=== PATIENT | female | born 1995 | race Caucasian/White ===

== ENCOUNTER 2020-07-13 18:32 | Inpatient (IN) | payer BC ==
[~2020-07-13] VITALS: Ht 167.6 cm; Wt 83.5 kg
[~2020-07-13 18:32] MED LIST: CIPRO500 MG PO; IBUPROFEN800 MG PO; MACROBID100 MG PO; PHENAZOPYRIDIN200 MG PO
[2020-07-13 19:06] LABS: BASOPHILS 0.1 % (0-2); EOSINOPHILS 0 % (0-7); HEMATOCRIT 41.3 % (36.0-48.0); HEMOGLOBIN 13.6 g/dL (12-16); IMMATURE GRANULOCYTES 0.3 % (0-5); LYMPHOCYTE ABS# 1.11 10x3/uL (1.18-3.74); LYMPHOCYTES 5.8 % (15-50); MCH 29.9 pg (26.0-34.0); MCHC 32.9 g/dL (31.0-37.0); MCV 90.8 fL (80.0-100.0); MEAN PLATELET VOLUME 11.2 fL (7.4-10.4); MONOCYTES 4.9 % (2-11); NEUTROPHIL ABS# 16.86 10x3/uL (1.56-6.13); NEUTROPHILS 88.9 % (40-80); RBC 4.55 10x6/uL (4.00-5.40); RDW 12.9 % (11.5-14.5)
[2020-07-13 19:10] LABS: PLATELET COUNT 341 10x3/uL (130-400)
[2020-07-13 19:11] LABS: BILIRUBIN NEGATIVE (NEGATIVE); KETONE NEGATIVE (NEGATIVE); NITRITE POSITIVE (NEGATIVE); UROBILINOGEN NORMAL mg/dL (< 2)
[2020-07-13 19:12] LABS: BACTERIA MANY HPF (NONE SEEN); SQUAMOUS EPITHELIAL 0-5 HPF (0-4); WHITE CELLS - URINE 50 HPF (0-4)
[2020-07-13 19:12] LABS: CALC OSMOLALITY 278 mosm/kg (275-300); CARBON DIOXIDE 26.1 mmol/L (21.0-32.0); CHLORIDE - SERUM 101 mmol/L (98-107); CREATININE - SERUM 1.1 mg/dL (0.6-1.3); GLUCOSE 132 mg/dL (74-106); POTASSIUM - SERUM 3.7 mmol/L (3.5-5.1); SODIUM 138 mmol/L (136-145); UREA NITROGEN 14 mg/dL (7-18); eGFR NON AFRICAN AMERICAN 66 mL/min (90-120)
[2020-07-13 19:21] LABS: ALBUMIN 4.5 g/dL (3.4-5.0); ALKALINE PHOSPHATASE 86 U/L (30-120); ALT (SGPT) 17 U/L (10-68); AMYLASE - SERUM 73 U/L (25-115); BILIRUBIN - TOTAL 1.02 mg/dL (0.2-1.3); LIPASE 65 U/L (73-393); PROTEIN - SERUM 9.3 g/dL (6.4-8.2)
[2020-07-13 19:22] LABS: TROPONIN-I < 0.017 ng/mL (0.000-0.060)
[2020-07-13 19:42] LABS: HCG URINE NEGATIVE (NEGATIVE)
[2020-07-13 20:00] VITALS: BP 140/83
[2020-07-13 20:55] VITALS: BP 138/79
[2020-07-13 21:03] LABS: APTT 27.6 SECONDS (22.8-39.4); INR 1.12 (0.85-1.17); PROTIME 13.3 SECONDS (11.6-15.0)
[2020-07-13 22:26] LABS: UDS - AMPHET NEGATIVE QUAL (NEGATIVE); UDS - BARB NEGATIVE QUAL (NEGATIVE); UDS - BENZO POSITIVE QUAL (NEGATIVE); UDS - COCAINE NEGATIVE QUAL (NEGATIVE); UDS - OPIATE NEGATIVE QUAL (NEGATIVE); UDS - PCP NEGATIVE QUAL (NEGATIVE); UDS - THC POSITIVE QUAL (NEGATIVE)
[2020-07-14] VITALS: BP 128/82
[2020-07-14 02:21] VITALS: BP 140/83; BMI 29.7
[2020-07-14 04:00] VITALS: BP 105/62
[2020-07-14 05:29] LABS: BASOPHILS 0.1 % (0-2); EOSINOPHILS 0 % (0-7); HEMATOCRIT 34.8 % (36.0-48.0); HEMOGLOBIN 11.5 g/dL (12-16); IMMATURE GRANULOCYTES 0.2 % (0-5); LYMPHOCYTE ABS# 1.22 10x3/uL (1.18-3.74); LYMPHOCYTES 8.1 % (15-50); MCH 29.9 pg (26.0-34.0); MCV 90.6 fL (80.0-100.0); MEAN PLATELET VOLUME 11.3 fL (7.4-10.4); NEUTROPHIL ABS# 12.97 10x3/uL (1.56-6.13); NEUTROPHILS 85.6 % (40-80); RBC 3.84 10x6/uL (4.00-5.40); RDW 12.8 % (11.5-14.5); WBC 15.1 10x3/uL (4.8-10.8)
[2020-07-14 05:33] LABS: PLATELET COUNT 265 10x3/uL (130-400)
[2020-07-14 05:44] LABS: ALKALINE PHOSPHATASE 72 U/L (30-120); ALT (SGPT) 15 U/L (10-68); BILIRUBIN - TOTAL 0.77 mg/dL (0.2-1.3); CALCIUM 8.4 mg/dL (8.5-10.1); CARBON DIOXIDE 27.5 mmol/L (21.0-32.0); CHLORIDE - SERUM 101 mmol/L (98-107); CREATININE - SERUM 0.9 mg/dL (0.6-1.3); GLUCOSE 106 mg/dL (74-106); MAGNESIUM - SERUM 1.9 mg/dL (1.8-2.4); POTASSIUM - SERUM 3.6 mmol/L (3.5-5.1); PROTEIN - SERUM 7.5 g/dL (6.4-8.2); SODIUM 137 mmol/L (136-145); eGFR NON AFRICAN AMERICAN 83 mL/min (90-120)
[2020-07-14 05:49] LABS: ALBUMIN 3.3 g/dL (3.4-5.0); CALC OSMOLALITY 271 mosm/kg (275-300); UREA NITROGEN 8 mg/dL (7-18)
[2020-07-14 08:00] VITALS: BP 160/89
--- NOTE | 2020-07-14 08:15 | NUR ---
NURSE IN ROOM WITH PATIENT THIS AM TO GIVE MEDICATIONS. PATIENT REQUESTING PAIN AND NAUSEA MEDICATIONS. NURSE REMINDS PT IT IS NOT TIME FOR PAIN MEDICATIONS YET, BUT COULD GIVE NAUSEA MEDS. PLAN OF CARE REVIEWED AND ASSESSMENT HAS BEEN COMPLETED. CALL LIGHT IN REACH. NAD NOTED. IN ROOM.
[2020-07-14 11:00] VITALS: BP 132/80
[2020-07-14 12:29] VITALS: Ht 167.6 cm; Wt 83.5 kg
[2020-07-14 21:59] VITALS: BP 104/65
[2020-07-15 01:20] VITALS: BP 111/63
--- NOTE | 2020-07-15 02:50 | NUR ---
PT REFUSES SCD'S AND IS ALSO ON LOVANOX.
[2020-07-15 05:20] VITALS: BP 122/80
[2020-07-15 06:03] LABS: BASOPHILS 0.2 % (0-2); EOSINOPHILS 0.4 % (0-7); HEMATOCRIT 34.4 % (36.0-48.0); HEMOGLOBIN 11.3 g/dL (12-16); IMMATURE GRANULOCYTES 0.3 % (0-5); LYMPHOCYTE ABS# 1.62 10x3/uL (1.18-3.74); LYMPHOCYTES 17.7 % (15-50); MCH 29.7 pg (26.0-34.0); MCHC 32.8 g/dL (31.0-37.0); MCV 90.3 fL (80.0-100.0); MEAN PLATELET VOLUME 11.4 fL (7.4-10.4); MONOCYTES 10.6 % (2-11); NEUTROPHIL ABS# 6.46 10x3/uL (1.56-6.13); NEUTROPHILS 70.8 % (40-80); PLATELET COUNT 226 10x3/uL (130-400); RBC 3.81 10x6/uL (4.00-5.40); RDW 12.7 % (11.5-14.5)
[2020-07-15 06:07] LABS: WBC 9.1 10x3/uL (4.8-10.8)
[2020-07-15 06:16] LABS: ALKALINE PHOSPHATASE 67 U/L (30-120); ALT (SGPT) 15 U/L (10-68); BILIRUBIN - TOTAL 0.61 mg/dL (0.2-1.3); CALC OSMOLALITY 269 mosm/kg (275-300); CALCIUM 8.3 mg/dL (8.5-10.1); CARBON DIOXIDE 26.1 mmol/L (21.0-32.0); CHLORIDE - SERUM 102 mmol/L (98-107); CREATININE - SERUM 0.8 mg/dL (0.6-1.3); GLUCOSE 82 mg/dL (74-106); MAGNESIUM - SERUM 1.9 mg/dL (1.8-2.4); POTASSIUM - SERUM 3.4 mmol/L (3.5-5.1); PROTEIN - SERUM 7.2 g/dL (6.4-8.2); SODIUM 137 mmol/L (136-145); eGFR NON AFRICAN AMERICAN > 90 mL/min (90-120)
[2020-07-15 06:18] LABS: UREA NITROGEN 4 mg/dL (7-18)
[2020-07-15 08:00] VITALS: BP 126/74
[2020-07-15 11:00] VITALS: BP 120/73
--- NOTE | 2020-07-15 15:58 | NUR ---
ALERT AND ORIENTED X4. SITTING UP IN BED. STUDENT NURSE DC LT AC IV TIP INTACT. STUDENT NURSE RESITE IV 20G LT HAND. CONTINUE IV FLUIDS ORDERED. TRANSFER FROM 2103 TO 2101 DUE TO SHOWER LEAK. DENIES ANY NEEDS. CONTINUE PAIN MANAAGEMENT ORDERED. CONTINUE PLAN OF CARE AND SAFETY PRECAUTIONS.
[2020-07-15 16:31] VITALS: BP 122/65
--- NOTE | 2020-07-15 19:10 | NUR ---
pt awake alert, lying in bed watching tv, denies any needs will contunue to monitor
[2020-07-15 21:19] VITALS: BP 132/99
[2020-07-16 01:48] VITALS: BP 121/73
[2020-07-16 05:50] VITALS: BP 122/81
[2020-07-16 07:20] LABS: BASOPHILS 0.4 % (0-2); EOSINOPHILS 1.3 % (0-7); HEMATOCRIT 31.4 % (36.0-48.0); HEMOGLOBIN 10.4 g/dL (12-16); IMMATURE GRANULOCYTES 0.4 % (0-5); LYMPHOCYTE ABS# 1.68 10x3/uL (1.18-3.74); LYMPHOCYTES 31.8 % (15-50); MCH 29.3 pg (26.0-34.0); MCHC 33.1 g/dL (31.0-37.0); MCV 88.5 fL (80.0-100.0); MEAN PLATELET VOLUME 11.2 fL (7.4-10.4); MONOCYTES 10.8 % (2-11); NEUTROPHIL ABS# 2.93 10x3/uL (1.56-6.13); NEUTROPHILS 55.3 % (40-80); PLATELET COUNT 228 10x3/uL (130-400); RBC 3.55 10x6/uL (4.00-5.40); RDW 12.2 % (11.5-14.5)
[2020-07-16 07:21] LABS: WBC 5.3 10x3/uL (4.8-10.8)
--- NOTE | 2020-07-16 07:30 | NUR ---
Lying in bed with eyes closed, respirations slow/deep/even, rouses easily with verbal stimulus, c/o lower back pain described as sharp and rated 8/10, medicated as ordered (see MAR), spouse at bedside (actually in bed with pt), call light/phone/water within reach, no s/s of acute distress observed.
[2020-07-16 07:44] LABS: ALBUMIN 2.8 g/dL (3.4-5.0); ALKALINE PHOSPHATASE 62 U/L (30-120); ALT (SGPT) 12 U/L (10-68); BILIRUBIN - TOTAL 0.27 mg/dL (0.2-1.3); CALC OSMOLALITY 272 mosm/kg (275-300); CALCIUM 8.4 mg/dL (8.5-10.1); CARBON DIOXIDE 24.3 mmol/L (21.0-32.0); CHLORIDE - SERUM 103 mmol/L (98-107); CREATININE - SERUM 0.8 mg/dL (0.6-1.3); GLUCOSE 103 mg/dL (74-106); MAGNESIUM - SERUM 1.9 mg/dL (1.8-2.4); POTASSIUM - SERUM 3.1 mmol/L (3.5-5.1); PROTEIN - SERUM 6.7 g/dL (6.4-8.2); SODIUM 138 mmol/L (136-145); UREA NITROGEN 5 mg/dL (7-18); eGFR NON AFRICAN AMERICAN > 90 mL/min (90-120)
[2020-07-16 08:09] VITALS: BP 134/77
[2020-07-16] MEDS ORDERED: NICODERM CQ1 EAC3 TRANSDERM (11:08)
[2020-07-16] MEDS ORDERED: PROTONIX40 MG PO (11:09)
[2020-07-16] MEDS ORDERED: FLORAJEN DIGES1 EACH PO (11:09)
[2020-07-16] MEDS ORDERED: TORADOL10 MG PO (11:10)
[2020-07-16] MEDS ORDERED: LEVAQUIN750 MG PO (11:10)
[2020-07-16] MEDS ORDERED: HYDROCODON-ACE1 EA10 PO (11:10)
[2020-07-16 11:39] VITALS: BP 138/68
--- NOTE | 2020-07-16 13:15 | NUR ---
Provided written/verbal discharge instructions/education to which pt spouse voiced understanding.
--- NOTE | 2020-07-16 13:20 | NUR ---
Discontinued IV access/cardiac telemetry monitoring at this time.
--- NOTE | 2020-07-16 13:56 | NUR ---
Discharged home to self care in stable condition via w/c accompanied by hospital staff and family member, no s/s of acute distress observed.
== END 2020-07-16 13:56 | disposition home or self-care (01) | DRG 872 ==
LOC: D.ER 18:32 → D.M2 21:19
PROVIDERS: Family Medicine; ADMIT Family Medicine; ATTEND Family Medicine
DX: A41.9 Sepsis, unspecified organism (principal); N12 Tubulo-interstitial nephritis, not specified as acute or chronic; N39.0 Urinary tract infection, site not specified

== ENCOUNTER 2020-09-05 07:40 | Emergency (ER) | payer BC ==
[2020-07-14 12:29] VITALS: Ht 167.6 cm; Wt 81.8 kg
[~2020-09-05] VITALS: Ht 167.6 cm; Wt 81.8 kg
[~2020-09-05 07:40] MED LIST changes: +FLORAJEN DIGES1 EACH PO; +HYDROCODON-ACE1 EA10 PO; +LEVAQUIN750 MG PO; +NICODERM CQ1 EAC3 TRANSDERM; +PROTONIX40 MG PO; +TORADOL10 MG PO
[2020-09-05 08:33] VITALS: BP 107/54
[2020-09-05 08:33] LABS: BACTERIA FEW HPF (<MOD); BILIRUBIN NEGATIVE (NEGATIVE); GRANULAR CAST 1 LPF (0-1); KETONE TRACE mg/dL (< 1+); NITRITE NEGATIVE (NEGATIVE); PH 5.5 (5.0-8.0); SQUAMOUS EPITHELIAL 6 HPF (0-4); UROBILINOGEN NORMAL mg/dL (< 2); WHITE CELLS - URINE 2 HPF (0-4)
[2020-09-05 08:36] LABS: BASOPHILS 0.1 % (0-2); EOSINOPHILS 0.1 % (0-7); HCG URINE NEGATIVE (NEGATIVE); HEMATOCRIT 41.2 % (36.0-48.0); HEMOGLOBIN 13.6 g/dL (12-16); MCV 87.9 fL (80.0-100.0); MONOCYTES 3.5 % (2-11); NEUTROPHILS 92.3 % (40-80); RBC 4.69 10x6/uL (4.00-5.40); RDW 13.2 % (11.5-14.5); WBC 13.4 10x3/uL (4.8-10.8)
[2020-09-05 08:53] LABS: CALC OSMOLALITY 270 mosm/kg (275-300); CALCIUM 9.1 mg/dL (8.5-10.1); CHLORIDE - SERUM 101 mmol/L (98-107); CREATININE - SERUM 0.9 mg/dL (0.6-1.3); GLUCOSE 107 mg/dL (74-106); POTASSIUM - SERUM 4.1 mmol/L (3.5-5.1); SODIUM 135 mmol/L (136-145); UREA NITROGEN 14 mg/dL (7-18); eGFR NON AFRICAN AMERICAN 82 mL/min (90-120)
[2020-09-05 09:44] LABS: PLATELET COUNT 288 10x3/uL (130-400)
[2020-09-05] MEDS ORDERED: ZOFRAN ODT4 MG/UDTAB PO (09:57)
[2020-09-05] MEDS ORDERED: LOMOTIL 2.5-0.1 EAC1 PO (09:57)
== END 2020-09-05 11:56 | disposition home or self-care (01) ==
LOC: D.ER 07:40
PROVIDERS: Family Medicine
DX: A08.4 Viral intestinal infection, unspecified (principal); R10.9 Unspecified abdominal pain